=== PATIENT | male | born 1955 | race Caucasian/White ===

== ENCOUNTER 2018-07-25 02:03 | Observation (INO) ==
[2018-07-25] MEDS ORDERED: 0.9 % Sodium Chloride 1,000 ML IVC ONE (02:18)
[2018-07-25] MEDS ORDERED: *HR* Morphine 2 MG/ML SYRINGE IVP ONE (02:18)
[2018-07-25] MEDS ORDERED: Ondansetron 4 MG/2 ML VIAL IVP ONE ×2 (02:18→18:18)
--- NOTE | 2018-07-25 02:29 | Emergency Department Note ---
Disposition Clinical Impression: Nephrolithiasis Disposition: Admitted As Inpatient Condition: Good Referrals: Twan Dwyer DO [Primary Care Provider] - Forms: ED Satisfaction Letter, Work/School Release Time of Disposition: 04:05 Abdominal Pain HPI - General Chief Complaint: ED Abdominal Pain Stated Complaint: Kidney Stone/Left Flank Pain Time Seen by Provider: 07/25/18 02:16 Source: patient Mode of arrival: private vehicle Limitations: no limitations Nursing Notes Reviewed: Yes Vital Signs Reviewed: Yes - History of Present Illness HPI Narrative: 63-year-old male history of hypertension and kidney stones presents to the [facility] department with left flank pain. States for past 2 weeks he has had sharp pain that radiates from the left flank to the groin area. Approximately 6 days ago he was seen by his urologist Dr. Hay who prescribed Percocet and performed an x-ray that revealed a 5 mm kidney stone. He has had history kidney stones that requires lithotripsy every time. He is scheduled for lithotripsy in approximately 24 hours. He has been unable to control his pain at this time. Denies any nausea or vomiting. Last Percocet 6 PM approximately 8 hours prior to arrival. Denies any fever chills. He has noticed some hematuria. He has a history of colectomy. Pt Subjective Complaint: flank pain Pain Scale: 7 - Related Data Home Medications Medication Instructions Recorded Confirmed Amlodipine Besylate 10 mg PO HS 11/29/17 03/07/18 Citalopram Hydrobromide 10 mg PO DAILY 11/29/17 03/07/18 [Citalopram HBr] HYDROcodone/Acet 5/325 mg [[place] 1 tab PO Q6H PRN 11/29/17 03/07/18 5-325 mg] Metoprolol Succinate 100 mg PO DAILY 11/29/17 03/07/18 Omeprazole [PriLOSEC] 20 mg PO DAILY 11/29/17 03/07/18 Zolpidem [Ambien] 10 mg PO HS 11/29/17 03/07/18 hydrOXYzine HCl [Hydroxyzine HCl] 100 mg PO HS 11/29/17 03/07/18 Previous Rx's Medication Instructions Recorded OxyCODONE/APAP 5/325 [Percocet 2 each PO Q6H PRN 3 Days #10 tablet 11/29/17 5/325 MG] Allergies Allergy/AdvReac Type Severity Reaction Status Date / Time Iodinated Contrast- Oral and Allergy See Verified 07/25/18 02:07 IV Dye Comments [Iodinated Contrast Media - IV Dye] All systems ED: reviewed and negative except as stated. Review of Systems: As Per HPI Constitutional: Denies: fever, chills Cardiovascular: Denies: chest pain Respiratory: Denies: cough, dyspnea Gastrointestinal: Reports: abdominal pain. Denies: nausea, vomiting, diarrhea Genitourinary: Reports: hematuria. Denies: dysuria Musculoskeletal: Reports: back pain. Denies: neck pain Integumentary: Denies: rash Neurological: Denies: headache Abdominal Pain PMH - Past Medical History Medical history: Reports: cancer, GERD, hypertension, kidney stones Male Surgical History: Reports: orthopedic, other Psychiatric history: Reports: no psych history - Social History Smoking status: Never smoker Alcohol use: Reports: none, rarely Drug use: Reports: none Physical Exam - General Limitations: no limitations General appearance: alert, in distress (Appears uncomfortable, in pain) - Head Head exam: atraumatic, normocephalic, normal inspection - Eye Eye exam: Present: normal appearance, PERRL, EOMI - ENT ENT exam: normal exam, normal oropharynx, mucous membranes moist - Neck Neck exam: Present: normal inspection, full ROM, trachea midline - Chest Chest inspection: Present: normal inspection, symmetric chest wall rise - Respiratory Respiratory exam: Present: normal lung sounds bilaterally - Cardiovascular Cardiovascular exam: Present: regular rate, normal rhythm, normal heart sounds. Absent: systolic murmur, diastolic murmur - Abdominal Exam Abdominal exam: Present: soft, Non-Tender, normal bowel sounds. Absent: tenderness, distention, guarding, rebound, rigidity - Extremities Exam Extremities exam: Present: normal inspection, full ROM, normal capillary refill. Absent: tenderness, pedal edema - Back Exam Back exam: Present: normal inspection, full ROM, tenderness (Left flank). Absent: CVA tenderness (R), CVA tenderness (L) - Neurological Exam Neurological exam: Present: alert, oriented X3, normal gait - Psychiatric Psychiatric exam: Present: normal affect, normal mood - Skin Skin exam: Present: warm, dry, intact, normal color. Absent: rash, cyanosis, diaphoresis Course Course Narrative: Patient presents with known kidney stone on the left with significant pain uncontrolled at home. Denies any associated nausea vomiting. He is scheduled for outpatient lithotripsy and approximately 36 hours. Will evaluate for any renal insufficiency or infection. Patient is not diabetic. Also obtain a KUB to valuate further progression of the stone. IV fluids and pain medication. - Reevaluation(s) Reevaluation #1: Urinalysis appears contaminated with blood, WBC and leuk esterase. He has a known history of bladder cancer. Review of his prior urinalysis this appears consistent however urine culture without growth. Rest of his labs without any significant abnormality. It is noted that his serum creatinine 1.1 slightly above baseline. Patient reports minimal improvement with pain medication lastingly a few minutes and then returning. X-ray revealed up to 6 mm stone. Patient was given additional pain medication Dilaudid 1 mg. On reevaluation his pain is only improved from 8 to a 6. Due to the intractable pain patient may require admission. Will consult with urology. Time: 04:37 - Consultations Consultation #1: Spoke to urologist Dr. Hernandes who is on-call, will plan to see the patient in consultation and recommends admission to medicine. Time: 04:41 Consultation #2: Spoke with on-call hospitalist santi Mejia to admit for intractable pain secondary to nephrolithiasis. No further orders at this time Vital Signs Temperature 97.7 F 07/25/18 02:07 Pulse Rate 75 07/25/18 02:07 Respiratory Rate 17 07/25/18 02:07 Blood Pressure 173/107 07/25/18 02:07 O2 Sat by Pulse Oximetry 95 07/25/18 02:07 Temperature 97.7 F 07/25/18 02:07 Pulse Rate 78 07/25/18 03:53 Respiratory Rate 18 07/25/18 03:53 Blood Pressure 164/93 07/25/18 03:53 O2 Sat by Pulse Oximetry 96 07/25/18 03:53 Oxygen Delivery Oxygen Delivery Room Air Abdominal Pain - MDM Narrative Medical decision making narrative: Patient was discussed with my attending physician who agrees with ED management and final disposition. They independently evaluated the patient. Please refer to their attestation to this encounter for additional information. This note was generated by [employer] voice recognition software and as a result grammatical or spelling errors may occur using this program. - Medical Records Medical records reviewed: Yes I reviewed the patient's medical records. - Lab Data Lab results reviewed: Yes I reviewed the patient's lab results. Result diagrams: 07/25/18 02:18 07/25/18 02:18 Lab Results 07/25/18 07/25/18 07/25/18 Range/Units 02:18 02:18 02:28 WBC 9.1 (4.3-11.1) K/mcL RBC 5.10 (4.19-5.50) M/mcL Hgb 15.4 (12.9-16.9) g/dL Hct 44.4 (37.5-50.1) % MCV 87.1 (83.0-100.0) fL MCH 30.2 (28.0-33.3) pg MCHC 34.7 (31.6-35.5) g/dL RDW 13.1 (11.5-14.5) % Plt Count 226 (140-400) K/mcL MPV 9.9 (9.4-12.4) fL Immature Gran % 0.3 (0-4) % Seg Neutrophils % 57.7 % Lymphocytes % 28.2 % Monocytes % 10.0 % Eosinophils % 3.1 % Basophils % 0.7 % Neutrophils # 5.2 (1.6-8.9) K/mcL Lymphocytes # 2.6 (0.6-4.6) K/mcL Monocytes # 0.9 (0.0-1.3) K/mcL Eosinophils # 0.3 (0.0-0.6) K/mcL Basophils # 0.1 (0.0-0.2) K/mcL Sodium 140 (136-145) mEq/L Potassium 3.3 L (3.5-5.1) mEq/L Chloride 101 (98-107) mEq/L Carbon Dioxide 31 H (23-29) mEq/L BUN 21 (8-23) mg/dL Creatinine 1.18 (0.70-1.30) mg/dL Est GFR ( Amer) > 60 (> 60) Est GFR (Non-Af Amer) > 60 (> 60) BUN/Creatinine Ratio 18 (6-26) Glucose 103 (70-105) mg/dL Calculated Osmolality 293 (280-300) Calcium 9.8 (8.6-10.3) mg/dL Urine Color Yellow (Yellow) Urine Clarity Cloudy A (Clear) Urine pH 6.0 (5.0-8.0) pH Units Ur Specific [place] 1.027 H (1.010-1.025) Urine Protein 30 H (Neg-Trace) mg/dL Urine Glucose (UA) Normal (Normal) mg/dL Urine Ketones Negative (Negative) mg/dL Urine Blood Small H (Negative) Urine Nitrite Negative (Negative) Urine Bilirubin Negative (Negative) Urine Urobilinogen Normal (Normal) mg/dL Ur Leukocyte Esterase Moderate H (Negative) Urine Microscopic RBC 15-30 H (0-3) per hpf Urine Microscopic WBC TNTC H (0-3) per hpf Ur Squamous Epith Cells Moderate H (None-Few) per lpf Urine Bacteria Moderate H (None-Few) per hpf Hyaline Casts Few (None-Few) per lpf Ur Culture Indicated? YES A (NO) - Radiology Data Radiology results reviewed: Yes I reviewed the patient's radiology results. KUB X-Ray 07/25/18 02:18 IMPRESSION: See findings above. D/ / Luis Thao / Luis Thao Interpreting Provider: Luis Thao
[2018-07-25] MEDS ORDERED: Ketorolac 15 MG/ML VIAL IVP ONE (02:31)
[2018-07-25 02:36] LABS: Bilirubin,Urine Negative (Negative); Blood,Urine Small (Negative); Clarity,Urine Cloudy (Clear); Color,Urine Yellow (Yellow); Glucose,Urine (UA) Normal (Normal); Ketones,Urine Negative (Negative); Leukocyte Esterase,Urine Moderate (Negative); Nitrite,Urine Negative (Negative); Protein,Urine 30 mg/dL (Neg-Trace); Specific Gravity,Urine 1.027 (1.010-1.025); Urobilinogen,Urine Normal (Normal)
[2018-07-25 02:37] LABS: Bacteria,Urine Moderate per hpf (None-Few); Hyaline Casts,Urine Few per lpf (None-Few); RBC,Urine 15-30 per hpf (0-3); Squamous Epithelial Cell,Urine Moderate per lpf (None-Few); WBC,Urine TNTC per hpf (0-3)
[2018-07-25 03:21] LABS: Basophils # 0.1 K/mcL (0.0-0.2); Basophils % 0.7 %; Eosinophils # 0.3 K/mcL (0.0-0.6); Eosinophils % 3.1 %; Hematocrit 44.4 % (37.5-50.1); Hemoglobin 15.4 g/dL (12.9-16.9); Immature Granulocytes % 0.3 % (0-4); Lymphocytes # 2.6 K/mcL (0.6-4.6); Lymphocytes % 28.2 %; Mean Corpuscular HGB Conc 34.7 g/dL (31.6-35.5); Mean Corpuscular Hemoglobin 30.2 pg (28.0-33.3); Mean Corpuscular Volume 87.1 fL (83.0-100.0); Mean Platelet Volume 9.9 fL (9.4-12.4); Monocytes # 0.9 K/mcL (0.0-1.3); Neutrophils # 5.2 K/mcL (1.6-8.9); Platelet Count 226 K/mcL (140-400); Red Cell Distribution Width 13.1 % (11.5-14.5); Segmented Neutrophils % 57.7 %
[2018-07-25 03:42] LABS: BUN/Creatinine Ratio 18 (6-26); Blood Urea Nitrogen 21 mg/dL (8-23); Calcium 9.8 mg/dL (8.6-10.3); Carbon Dioxide 31 mEq/L (23-29); Chloride 101 mEq/L (98-107); Glucose 103 mg/dL (70-105); Osmolality,Calculated 293 (280-300); Potassium 3.3 mEq/L (3.5-5.1); Sodium 140 mEq/L (136-145); eGFR For Non-African Americans > 60 (> 60)
[2018-07-25] MEDS ORDERED: *HR* HYDROmorphone (PF) 1 MG/ML SYRINGE IVP ONE (04:03)
[2018-07-25] MEDS ORDERED: Potassium Chloride Elixir 20 MEQ/15 ML UDC PO ONE (05:01)
[2018-07-25] MEDS ORDERED: Naloxone 0.4 MG/ML INJ IVP PRN (05:03)
--- NOTE | 2018-07-25 05:23 | Emergency Department Note ---
Disposition Clinical Impression: Nephrolithiasis Disposition: Admitted As Inpatient Condition: Good General Adult HPI - General Chief complaint: ED Abdominal Pain Stated complaint: Kidney Stone/Left Flank Pain Time Seen by Provider: 07/25/18 02:16 Source: patient Mode of arrival: private vehicle Limitations: no limitations Nursing Notes Reviewed: Yes Vital Signs Reviewed: Yes - History of Present Illness Pain Scale: 7 - Related Data Home Medications Medication Instructions Recorded Confirmed Amlodipine Besylate 10 mg PO HS 11/29/17 03/07/18 Citalopram Hydrobromide 10 mg PO DAILY 11/29/17 03/07/18 [Citalopram HBr] HYDROcodone/Acet 5/325 mg [[place] 1 tab PO Q6H PRN 11/29/17 03/07/18 5-325 mg] Metoprolol Succinate 100 mg PO DAILY 11/29/17 03/07/18 Omeprazole [PriLOSEC] 20 mg PO DAILY 11/29/17 03/07/18 Zolpidem [Ambien] 10 mg PO HS 11/29/17 03/07/18 hydrOXYzine HCl [Hydroxyzine HCl] 100 mg PO HS 11/29/17 03/07/18 Previous Rx's Medication Instructions Recorded OxyCODONE/APAP 5/325 [Percocet 2 each PO Q6H PRN 3 Days #10 tablet 11/29/17 5/325 MG] Allergies Allergy/AdvReac Type Severity Reaction Status Date / Time Iodinated Contrast- Oral and Allergy See Verified 07/25/18 02:07 IV Dye Comments [Iodinated Contrast Media - IV Dye] Constitutional: Denies: fever, chills Cardiovascular: Denies: chest pain Respiratory: Denies: cough, dyspnea Gastrointestinal: Reports: abdominal pain. Denies: nausea, vomiting, diarrhea Genitourinary: Reports: hematuria. Denies: dysuria Musculoskeletal: Reports: back pain. Denies: neck pain Integumentary: Denies: rash Neurological: Denies: headache Past Medical History - Past Medical History Medical history: Reports: cancer, GERD, hypertension, kidney stones Surgical history: Reports: other Psychiatric history: Reports: no psych history - Social History Smoking Status: Never smoker Smokeless Tobacco Status: No Alcohol use: Reports: none, rarely Drug use: Reports: none Physical Exam - General Limitations: no limitations General appearance: alert, in distress (Appears uncomfortable, in pain) Course Vital Signs Temperature 97.7 F 07/25/18 02:07 Pulse Rate 75 07/25/18 02:07 Respiratory Rate 17 07/25/18 02:07 Blood Pressure 173/107 07/25/18 02:07 O2 Sat by Pulse Oximetry 95 07/25/18 02:07 Temperature 97.7 F 07/25/18 02:07 Pulse Rate 70 07/25/18 04:30 Respiratory Rate 18 07/25/18 04:30 Blood Pressure 163/100 07/25/18 04:30 O2 Sat by Pulse Oximetry 94 07/25/18 04:30 Oxygen Delivery Oxygen Delivery Room Air Medical Decision Making - Lab Data Result diagrams: 07/25/18 02:18 07/25/18 02:18 Lab Results 07/25/18 07/25/18 07/25/18 Range/Units 02:18 02:18 02:28 WBC 9.1 (4.3-11.1) K/mcL RBC 5.10 (4.19-5.50) M/mcL Hgb 15.4 (12.9-16.9) g/dL Hct 44.4 (37.5-50.1) % MCV 87.1 (83.0-100.0) fL MCH 30.2 (28.0-33.3) pg MCHC 34.7 (31.6-35.5) g/dL RDW 13.1 (11.5-14.5) % Plt Count 226 (140-400) K/mcL MPV 9.9 (9.4-12.4) fL Immature Gran % 0.3 (0-4) % Seg Neutrophils % 57.7 % Lymphocytes % 28.2 % Monocytes % 10.0 % Eosinophils % 3.1 % Basophils % 0.7 % Neutrophils # 5.2 (1.6-8.9) K/mcL Lymphocytes # 2.6 (0.6-4.6) K/mcL Monocytes # 0.9 (0.0-1.3) K/mcL Eosinophils # 0.3 (0.0-0.6) K/mcL Basophils # 0.1 (0.0-0.2) K/mcL Sodium 140 (136-145) mEq/L Potassium 3.3 L (3.5-5.1) mEq/L Chloride 101 (98-107) mEq/L Carbon Dioxide 31 H (23-29) mEq/L BUN 21 (8-23) mg/dL Creatinine 1.18 (0.70-1.30) mg/dL Est GFR ( Amer) > 60 (> 60) Est GFR (Non-Af Amer) > 60 (> 60) BUN/Creatinine Ratio 18 (6-26) Glucose 103 (70-105) mg/dL Calculated Osmolality 293 (280-300) Calcium 9.8 (8.6-10.3) mg/dL Urine Color Yellow (Yellow) Urine Clarity Cloudy A (Clear) Urine pH 6.0 (5.0-8.0) pH Units Ur Specific [place] 1.027 H (1.010-1.025) Urine Protein 30 H (Neg-Trace) mg/dL Urine Glucose (UA) Normal (Normal) mg/dL Urine Ketones Negative (Negative) mg/dL Urine Blood Small H (Negative) Urine Nitrite Negative (Negative) Urine Bilirubin Negative (Negative) Urine Urobilinogen Normal (Normal) mg/dL Ur Leukocyte Esterase Moderate H (Negative) Urine Microscopic RBC 15-30 H (0-3) per hpf Urine Microscopic WBC TNTC H (0-3) per hpf Ur Squamous Epith Cells Moderate H (None-Few) per lpf Urine Bacteria Moderate H (None-Few) per hpf Hyaline Casts Few (None-Few) per lpf Ur Culture Indicated? YES A (NO) Attestation Statement - Attestation Attestation: I, Rajinder Hollingsworth MD, personally evaluated this patient and discussed their management with the resident physician. I reviewed the resident's note and agree with the documented findings, medical decision making, and plan of care. 63-year-old male with a known kidney stone in the left ureter who is scheduled for lithotripsy on Wednesday presents to the emergency department complaining of increased pain for the past 2 days. He has Percocet at home but has been unable to manage the pain with Percocet. No fever. Some nausea from the pain but no vomiting. On examination patient is a well-developed well-nourished male in moderate discomfort. He is alert and oriented 3. There is no cyanosis or diaphoresis. Breath sounds are clear and equal bilaterally. Heart regular rate and rhythm. There is left CVA tenderness. Abdomen soft and nontender with normal bowel sounds. Labs reviewed. Patient medicated for pain but continues to have severe left flank pain uncontrolled with Dilaudid. The urologist avionics manager, Dr. Hernandes, was consulted and recommended admission for pain control. The hospitalist, Dr. Suero, was consulted and accepted admission of the patient.
--- NOTE | 2018-07-25 05:24 | Internal Med History&Physical ---
Date of Encounter: 07/25/18 Time of Encounter: 05:18 Internal Medicine - H&P: HPI Chief complaint: abdominal pain History of present illness: Cordell Cramer is a 63 year old man with a history of hypertension, high- grade bladder cancer status post transurethral resection of the tumor in November 2017 as well as recurrent kidney stones. He currently follows with urology as an outpatient for the latter. He says that about 2 weeks ago he developed sharp pain in his left flank radiating to his groin and 6 days ago he saw his urologist here at [place] prescribed narcotic analgesics and on x-ray saw a 5 mm kidney stone. He is scheduled for lithotripsy tomorrow as an outpatient however due to uncontrollable pain he came into the ER for evaluation. He has also noticed some hematuria of recent. Afebrile and without chills. No reports of nausea or vomiting. Another KUB was done to 9 showing a 6 mm focus of calcification and mid left ureter. Though hemodynamically stable in the ER he was in notable pain and was given ketorolac, morphine, hydromorphone and ondansetron. He is now admitted for further care. At this time he is in no acute distress. Past Med Surg Social Fam HX - Past Medical History Medical history: cancer, GERD, hypertension, kidney stones Psychiatric history: no psych history - Past Surgical History Surgical History: other Additional surgical history: TURP 2016. Colon Resection 2007. Right foot surgery 2008 - Social History Smoking Status: Never smoker Smokeless Tobacco Status: No Alcohol use: none, rarely Drug use: none - Family History Mother Living Status: Still Living Hx Family Cardiac Disorders: Yes (htn) Hx Family Respiratory Disorders: No Hx Family Cancer: No Hx Family GI Disorders: No Hx Family Endocrine Disorder: No Hx Family Neuromuscular Disorders: No Hx Family Neurologic Disorders: No Hx Family HEENT Disorders: No Hx Family Autoimmune Disorders: No Father Living Status: Hx Family Cardiac Disorders: Yes (htn, [place]) Hx Family Respiratory Disorders: No Hx Family Cancer: Yes Hx Family GI Disorders: Yes Hx Family Endocrine Disorder: No Hx Family Neuromuscular Disorders: No Hx Family Neurologic Disorders: No Hx Family HEENT Disorders: No Hx Family Autoimmune Disorders: No Internal Medicine - H&P: Meds Amlodipine Besylate 10 mg PO HS 11/29/17 [History] Citalopram Hydrobromide [Citalopram HBr] 10 mg PO DAILY 11/29/17 [History] HYDROcodone/Acet 5/325 mg [[place] 5-325 mg] 1 tab PO Q6H PRN 11/29/17 [History] Metoprolol Succinate 100 mg PO DAILY 11/29/17 [History] Omeprazole [PriLOSEC] 20 mg PO DAILY 11/29/17 [History] OxyCODONE/APAP 5/325 [Percocet 5/325 MG] 2 each PO Q6H PRN 3 Days #10 tablet 11/29/17 [Rx] Zolpidem [Ambien] 10 mg PO HS 11/29/17 [History] hydrOXYzine HCl [Hydroxyzine HCl] 100 mg PO HS 11/29/17 [History] Allergy/AdvReac Type Severity Reaction Status Date / Time Iodinated Contrast- Oral and Allergy See Verified 07/25/18 02:07 IV Dye Comments [Iodinated Contrast Media - IV Dye] All Systems PM: A 10-system review of systems was performed and is negative for pertinent findings except as documented above in the HPI. - Constitutional Vitals: Temp Pulse Resp BP Pulse Ox 97.7 F 70 18 163/100 94 07/25/18 02:07 07/25/18 04:30 07/25/18 04:30 07/25/18 04:30 07/25/18 04:30 Exam: Vitals: Reviewed General: Well-developed well-appearing male lying in bed in no acute distress. Skin: Warm and supple. HEENT: Moist mucous membranes. No conjunctivae pallor. Neck: No lymphadenopathy. No JVD. No carotid bruits. No palpable thyroid. Chest: Normal thoracic expansion. Normal breath sounds. Clear to auscultation. Heart: Normal S1 & S2; rhythmic. No rubs or murmurs. Abdomen: Non-distended, soft and mildly tender to palpation in the left flank. Extremities: No clubbing, cyanosis or edema. No calf tenderness. Normal distal pulses. Neurological: Awake, alert and oriented to person, place and time. No focal deficits. Psych: Affect appropriate. Internal Med - H&P Results - Labs CBC & Chem 7: 07/25/18 02:18 07/25/18 02:18 Labs: Short CBC 07/25/18 Range/Units 02:18 WBC 9.1 (4.3-11.1) K/mcL Hgb 15.4 (12.9-16.9) g/dL Hct 44.4 (37.5-50.1) % Plt Count 226 (140-400) K/mcL Neutrophils # 5.2 (1.6-8.9) K/mcL BMP 07/25/18 02:18 Sodium 140 Potassium 3.3 L Chloride 101 Carbon Dioxide 31 H BUN 21 Creatinine 1.18 Glucose 103 Calcium 9.8 Urine 07/25/18 Range/Units 02:28 Urine Color Yellow (Yellow) Urine Clarity Cloudy A (Clear) Urine pH 6.0 (5.0-8.0) pH Units Ur Specific [place] 1.027 H (1.010-1.025) Urine Protein 30 H (Neg-Trace) mg/dL Urine Glucose (UA) Normal (Normal) mg/dL - Impressions ITS Impressions KUB X-Ray 07/25/18 02:18 IMPRESSION: See findings above. D/ / Luis Thao / Luis Thao Interpreting Provider: Luis Thao - Assessment and Plan (1) Nephrolithiasis Current Visit: Yes Status: Acute Assessment and plan: Will keep NPO. Urology consult requested. IVF and analgesics as needed in the interim for the intractable pain. (2) Abnormal urinalysis Current Visit: Yes Status: Acute Assessment and plan: Seen to have a history of sterile pyuria. Although UA is abnormal, he has no clinical signs of infection/sepsis and is likely seondary to the ureteral inflammation combined and perhaps bladder abnormalities after tumor resection. No abx to be administered at this time but should receive perioperatively. (3) GERD (gastroesophageal reflux disease) Current Visit: Yes Status: Chronic Assessment and plan: PPI to be resumed once cleared for PO. Qualifiers: Esophagitis presence: without esophagitis Qualified Code(s): K21.9 - Gastro-esophageal reflux disease without esophagitis (4) Hypertension Current Visit: Yes Status: Chronic Assessment and plan: Uncontrolled at this time. Perhaps equally related to pain. Given current NPO status will administer 10mg of IV hydralazine. Qualifiers: Hypertension type: essential hypertension Qualified Code(s): I10 - Es sential (primary) hypertension (5) Multiple malignancies Current Visit: Yes Status: Resolved Assessment and plan: Has a history of colorectal Ca s/p partial colonic resection; melanoma s/p resec tion and bladder tumor s/p TURP with no evidence of ongoing disease. Follows with oncology. - Time Spent With Patient Total time spent is greater than 50% in coordination of care (as documented) at patient's floor/unit and/or counseling patient: Greater than 35 minutes
[2018-07-25 05:40] LABS: Prothrombin Time 11.8 Seconds (9.4-12.1)
[2018-07-25] MEDS: OXYCODONE Oral CONC 10 MG/0.5 ML ORAL.SYG SL PRN ×3 (05:40→17:53)
[2018-07-25 05:43] LABS: Activated Partial Thrombo Time 31.2 Seconds (26.0-36.0)
[2018-07-25] MEDS: Ringers Solution, Lactated 1,000 ML IVC SCH ×2 (05:51→14:00)
[2018-07-25] MEDS ORDERED: *HR* HYDROmorphone 2 MG/ML SYRINGE IVP PRN (05:52)
[2018-07-25] MEDS: Ketorolac 30 MG/ML VIAL IVP PRN ×2 (06:10→13:36)
[2018-07-25] MEDS: *HR* Heparin 5,000 UNIT/ML VIAL SQ SCH ×2 (06:11→17:17)
--- NOTE | 2018-07-25 07:45 | Internal Med Progress Note ---
<Jay Selby - Last Filed: 07/25/18 11:45> Hospitalist Progress Note - Encounter Date of Encounter: 07/25/18 Time of Encounter: 11:46 - Subjective Interval History: Patient continues to have abdominal pain. He is lying in bed and reports any movement makes his pain worse. He is nothing by mouth awaiting urology consu ltation and possible surgical intervention today. - Exam Vitals: Temp Pulse Resp BP Pulse Ox 97.9 F 66 17 155/91 93 07/25/18 05:52 07/25/18 05:52 07/25/18 05:52 07/25/18 05:52 07/25/18 05:52 Exam: General: pleasant, mild distress Cardiovascualr: Regular rate and rhythm with no murmur, absent gallops or rubs, absent pedal edema, radial pulses 2 out of 4 Lungs: Clear to auscultation bilaterally, not in respiratory distress Abdomen: Soft nontender, nondistended positive bowel sounds, absent hepatomegaly tender in the left flank Skin: warm and dry, absent rash, absent open wounds and nodules MSK: absent clubbing, cyanosis, joints without swelling Neuro: Cranial nerves II through XII intact, UE and LE sensation equal bilaterally, UE and LEstrength 5/5, alert oriented 3, Psych: good insight and judgment anxious - Assessment and Plan (1) Nephrolithiasis Current Visit: Yes Status: Acute Assessment and Plan: Patient has left flank pain. KUB shows 6 mm focus of calcification at the level of L3 in the mid left ureter. Awaiting urology recommendations Continue pain regimen Nothing by mouth (2) Abnormal urinalysis Current Visit: Yes Status: Acute Assessment and Plan: Urine culture incubating. patient denies dysuria. He reports normal urine production. No antibiotics recommended (3) Bladder cancer Current Visit: Yes Status: Acute Assessment and Plan: Patient has history of high-grade bladder cancer with trans-urethral resection of the tumor and November 2017 Follow-up with oncology and urology outpatient. (4) Hypertension Current Visit: Yes Status: Chronic Assessment and Plan: Patient is on metoprolol and amlodipine for hypertension. Currently holding by mouth medications for possible procedure today. Blood pressures 135/74 prn Lopressor (5) GERD (gastroesophageal reflux disease) Current Visit: Yes Status: Chronic Assessment and Plan: Protonix IV (6) Hypokalemia Current Visit: No Status: Resolved Assessment and Plan: Replacing Repeat BMP. - Time Spent with Patient Total time spent is greater than 50% in coordination of care (as documented) at patient's floor/unit and/or counseling patient: Internal Medicine: Result - Labs CBC & Chem 7: 07/25/18 02:18 07/25/18 02:18 Labs: Short CBC 07/25/18 Range/Units 02:18 WBC 9.1 (4.3-11.1) K/mcL Hgb 15.4 (12.9-16.9) g/dL Hct 44.4 (37.5-50.1) % Plt Count 226 (140-400) K/mcL Neutrophils # 5.2 (1.6-8.9) K/mcL BMP 07/25/18 02:18 Sodium 140 Potassium 3.3 L Chloride 101 Carbon Dioxide 31 H BUN 21 Creatinine 1.18 Glucose 103 Calcium 9.8 Urine 07/25/18 Range/Units 02:28 Urine Color Yellow (Yellow) Urine Clarity Cloudy A (Clear) Urine pH 6.0 (5.0-8.0) pH Units Ur Specific [place] 1.027 H (1.010-1.025) Urine Protein 30 H (Neg-Trace) mg/dL Urine Glucose (UA) Normal (Normal) mg/dL - ABG Interpretation ABG results: PT/INR, D-dimer PT 11.8 Seconds (9.4-12.1) 07/25/18 03:02 - Impressions Impressions KUB X-Ray 07/25/18 02:18 IMPRESSION: See findings above. D/ / Luis Thao / Luis Thao Interpreting Provider: Luis Thao Consult Discharge Plan - Plan Referrals: Twan Dwyer DO [Primary Care Provider] - <Tori Rose - Last Filed: 07/25/18 12:13> Hospitalist Progress Note - Encounter Date of Encounter: 07/25/18 - Exam Vitals: Temp Pulse Resp BP Pulse Ox 98.0 F 80 17 135/74 96 07/25/18 11:38 07/25/18 11:38 07/25/18 11:38 07/25/18 11:38 07/25/18 11:38 - Assessment and Plan (1) Hypertension Current Visit: Yes Status: Chronic (2) GERD (gastroesophageal reflux disease) Current Visit: Yes Status: Chronic (3) Nephrolithiasis Current Visit: Yes Status: Acute (4) Abnormal urinalysis Current Visit: Yes Status: Acute (5) Multiple malignancies Current Visit: Yes Status: Resolved - Time Spent with Patient Total time spent is greater than 50% in coordination of care (as documented) at patient's floor/unit and/or counseling patient: Internal Medicine: Result - Labs CBC & Chem 7: 07/25/18 02:18 07/25/18 02:18 Labs: Short CBC 07/25/18 Range/Units 02:18 WBC 9.1 (4.3-11.1) K/mcL Hgb 15.4 (12.9-16.9) g/dL Hct 44.4 (37.5-50.1) % Plt Count 226 (140-400) K/mcL Neutrophils # 5.2 (1.6-8.9) K/mcL BMP 07/25/18 02:18 Sodium 140 Potassium 3.3 L Chloride 101 Carbon Dioxide 31 H BUN 21 Creatinine 1.18 Glucose 103 Calcium 9.8 Urine 07/25/18 Range/Units 02:28 Urine Color Yellow (Yellow) Urine Clarity Cloudy A (Clear) Urine pH 6.0 (5.0-8.0) pH Units Ur Specific [place] 1.027 H (1.010-1.025) Urine Protein 30 H (Neg-Trace) mg/dL Urine Glucose (UA) Normal (Normal) mg/dL - ABG Interpretation ABG results: PT/INR, D-dimer PT 11.8 Seconds (9.4-12.1) 07/25/18 03:02 - Impressions Impressions KUB X-Ray 07/25/18 02:18 IMPRESSION: See findings above. D/ / Luis Thao / Luis Thao Interpreting Provider: Luis Thao - Attending Attestation I have seen and independently assessed this patient and I agree with plan as documented Plan Nephrolithiasis. Urology consult. IV fluids. NPO . Pain control <Jay Selby - Last Filed: 07/25/18 11:45> (3) Bladder cancer Qualifiers: Bladder location: unspecified site Qualified Code(s): C67.9 - Malignant neoplasm of bladder, unspecified (4) Hypertension Qualifiers: Hypertension type: essential hypertension Qualified Code(s): I10 - Essential (primary) hypertension (5) GERD (gastroesophageal reflux disease) Qualifiers: Esophagitis presence: without esophagitis Qualified Code(s): K21.9 - Gastro- esophageal reflux disease without esophagitis <Tori Rose - Last Filed: 07/25/18 12:13> (1) Hypertension Qualifiers: Hypertension type: essential hypertension Qualified Code(s): I10 - Essential (primary) hypertension (2) GERD (gastroesophageal reflux disease) Qualifiers: Esophagitis presence: without esophagitis Qualified Code(s): K21.9 - Gastro- esophageal reflux disease without esophagitis
[2018-07-25] MEDS ORDERED: *HR* Metoprolol 5 MG/5 ML VIAL IVP PRN (11:51)
--- NOTE | 2018-07-25 12:54 | Urology - Consult Note ---
Date of Encounter: 07/25/18 Time of Encounter: 12:52 - Assessment and Plan (1) Left ureteral calculus Current Visit: Yes Status: Acute Assessment and plan: KUB images reviewed and interpreted independently. Approximate 6 mm catheter was in the mid to upper left ureter. Discussed options for management with patient in detail. Plan: Add on to today's OR schedule for ureteroscopy holmium laser lithotripsy and stenting (2) Flank pain Current Visit: Yes Status: Acute Assessment and plan: Secondary to obstructing left ureteral calculus. Anticipate resolution post address of stone. Plan: Ureteroscopic laser lithotripsy and stenting of left ureteral calculus (3) Urinary tract infection Current Visit: No Status: Acute Assessment and plan: Suspicion for UTI. However, based upon review of urinalysis being without nitrites I do not believe the patient has an active UTI. Plan: Culture pending. Qualifiers: Urinary tract infection type: acute cystitis Hematuria presence: with hematuria Qualified Code(s): N30.01 - Acute cystitis with hematuria Urology CN:HPI Consult date: 07/25/18 Requesting physician: Moira Lopez History of present illness: Very pleasant 63-year-old gentleman with a long-standing history of nephrolithiasis. The patient is established with my partner Dr. Hay and has been seen and treated for stones in the past. The patient now had sudden onset of severe left-sided flank pain leading to emergency department visit last n ight. Imaging reveals a 6 mm left mid ureteral calculus. Patient reports no exacerbating or remitting factors. He is currently comfortable. Patient reports some nausea but has no vomiting. Denies fevers chills nausea vomiting. Pain is constant left flank without radiation. Past Med Surg Social Fam HX - Past Medical History Medical history: cancer, GERD, hypertension, kidney stones Psychiatric history: no psych history - Past Surgical History Surgical History: other Additional surgical history: TURP 2016. Colon Resection 2007. Right foot surgery 2009 - Social History Smoking Status: Never smoker Smokeless Tobacco Status: No Alcohol use: none, rarely Drug use: none - Family History Mother Living Status: Still Living Hx Family Cardiac Disorders: Yes (htn) Hx Family Respiratory Disorders: No Hx Family Cancer: No Hx Family GI Disorders: No Hx Family Endocrine Disorder: No Hx Family Neuromuscular Disorders: No Hx Family Neurologic Disorders: No Hx Family HEENT Disorders: No Hx Family Autoimmune Disorders: No Father Living Status: Hx Family Cardiac Disorders: Yes (htn, [place]) Hx Family Respiratory Disorders: No Hx Family Cancer: Yes Hx Family GI Disorders: Yes Hx Family Endocrine Disorder: No Hx Family Neuromuscular Disorders: No Hx Family Neurologic Disorders: No Hx Family HEENT Disorders: No Hx Family Autoimmune Disorders: No Medications and Allergies Amlodipine Besylate 10 mg PO HS 11/29/17 [History] Citalopram Hydrobromide [Citalopram HBr] 10 mg PO DAILY 11/29/17 [History] HYDROcodone/Acet 5/325 mg [[place] 5-325 mg] 1 tab PO Q6H PRN 11/29/17 [History] Metoprolol Succinate 100 mg PO DAILY 11/29/17 [History] Omeprazole [PriLOSEC] 20 mg PO DAILY 11/29/17 [History] OxyCODONE/APAP 5/325 [Percocet 5/325 MG] 2 each PO Q6H PRN 3 Days #10 tablet 11/29/17 [Rx] Zolpidem [Ambien] 10 mg PO HS 11/29/17 [History] hydrOXYzine HCl [Hydroxyzine HCl] 100 mg PO HS 11/29/17 [History] Allergy/AdvReac Type Severity Reaction Status Date / Time Iodinated Contrast- Oral and Allergy See Verified 07/25/18 02:07 IV Dye Comments [Iodinated Contrast Media - IV Dye] Review of Systems - Constitutional no chills, no fever(s) - EENT Nose, mouth and throat: no dizziness, no headache(s) - Cardiovascular no chest pain, no diaphoresis - Respiratory no cough - Gastrointestinal abdominal pain, no fecal incontinence - Genitourinary flank pain, no genital pain - Musculoskeletal back pain, no muscle weakness - Integumentary no lesions, no rash - Neurological no confusion, no sensory deficit - Psychiatric no anxiety, no confusion - Hematologic/Lymphatic no easy bleeding, no easy bruising - Allergic/Immunologic no throat swelling, no wheezing Exam Initial Vital Signs Temp Pulse Resp BP Pulse Ox 97.7 F 75 17 173/107 95 07/25/18 02:07 07/25/18 02:07 07/25/18 02:07 07/25/18 02:07 07/25/18 02:07 - General physical appearance Present: well developed, well nourished, moderate pain - Eyes Present: normal ocular movement - ENT Present: normal mucosa - Neck Present: trachea midline - Respiratory Present: normal respiratory effort - Rectum Rectum: Present: no bleeding - Integumentary Present: no rash, no growths, no abnormal pigmentation - Neurologic Present: normal coordination - Musculoskeletal Present: normal gait Urology Results - Labs 07/25/18 02:18 07/25/18 02:18 Abnormal lab results Potassium 3.3 mEq/L (3.5-5.1) L 07/25/18 02:18 Carbon Dioxide 31 mEq/L (23-29) H 07/25/18 02:18 Urine Clarity Cloudy (Clear) A 07/25/18 02:28 Ur Specific [place] 1.027 (1.010-1.025) H 07/25/18 02:28 Urine Protein 30 mg/dL (Neg-Trace) H 07/25/18 02:28 Urine Blood Small (Negative) H 07/25/18 02:28 Ur Leukocyte Esterase Moderate (Negative) H 07/25/18 02:28 Urine Microscopic RBC 15-30 per hpf (0-3) H 07/25/18 02:28 Urine Microscopic WBC TNTC per hpf (0-3) H 07/25/18 02:28 Ur Squamous Epith Cells Moderate per lpf (None-Few) H 07/25/18 02:28 Urine Bacteria Moderate per hpf (None-Few) H 07/25/18 02:28 Ur Culture Indicated? YES (NO) A 07/25/18 02:28 Diabetes panel 07/25/18 Range/Units 02:18 Sodium 140 (136-145) mEq/L Potassium 3.3 L (3.5-5.1) mEq/L Chloride 101 (98-107) mEq/L Carbon Dioxide 31 H (23-29) mEq/L BUN 21 (8-23) mg/dL Creatinine 1.18 (0.70-1.30) mg/dL Glucose 103 (70-105) mg/dL Calcium 9.8 (8.6-10.3) mg/dL Calcium panel 07/25/18 Range/Units 02:18 Calcium 9.8 (8.6-10.3) mg/dL Pituitary panel 07/25/18 Range/Units 02:18 Sodium 140 (136-145) mEq/L Potassium 3.3 L (3.5-5.1) mEq/L Chloride 101 (98-107) mEq/L Carbon Dioxide 31 H (23-29) mEq/L BUN 21 (8-23) mg/dL Creatinine 1.18 (0.70-1.30) mg/dL Glucose 103 (70-105) mg/dL Calcium 9.8 (8.6-10.3) mg/dL Adrenal panel 07/25/18 Range/Units 02:18 Sodium 140 (136-145) mEq/L Potassium 3.3 L (3.5-5.1) mEq/L Chloride 101 (98-107) mEq/L Carbon Dioxide 31 H (23-29) mEq/L BUN 21 (8-23) mg/dL Creatinine 1.18 (0.70-1.30) mg/dL Glucose 103 (70-105) mg/dL Calcium 9.8 (8.6-10.3) mg/dL All other labs normal. - Imaging Abdominal x-ray: image reviewed (Reviewed and interpreted independently) Consult Discharge Plan - Plan Referrals: Twan Dwyer DO [Primary Care Provider] -
[2018-07-25] MEDS ORDERED: Ondansetron ODT 4 MG TAB.RAPDIS SL PRN (13:43)
--- NOTE | 2018-07-25 16:09 | Anesthesia Evaluation PreOp ---
<Manny Bernardo - Last Filed: 07/25/18 16:06> Date of Encounter: 07/25/18 - Past History Planned Operation: LEFT USE Cardiac History: HTN REPAIR CAMERAMAN History: Other (ANXIETY, DEPRESSION) Other Medical History: GERD Anesthesia History: No Prior Anesthetic Complications, Past Anesthesia Alcohol Use: none, rarely Drug use: none Medications and Allergies Amlodipine Besylate 10 mg PO HS 11/29/17 [History] Citalopram Hydrobromide [Citalopram HBr] 10 mg PO DAILY 11/29/17 [History] HYDROcodone/Acet 5/325 mg [[place] 5-325 mg] 1 tab PO Q6H PRN 11/29/17 [History] Metoprolol Succinate 100 mg PO DAILY 11/29/17 [History] Omeprazole [PriLOSEC] 20 mg PO DAILY 11/29/17 [History] OxyCODONE/APAP 5/325 [Percocet 5/325 MG] 2 each PO Q6H PRN 3 Days #10 tablet 11/29/17 [Rx] Zolpidem [Ambien] 10 mg PO HS 11/29/17 [History] hydrOXYzine HCl [Hydroxyzine HCl] 100 mg PO HS 11/29/17 [History] Allergy/AdvReac Type Severity Reaction Status Date / Time Iodinated Contrast- Oral and Allergy See Verified 07/25/18 02:07 IV Dye Comments [Iodinated Contrast Media - IV Dye] - Meds/Allergy Pre-op Review Medications Reviewed: Yes Allergies Reviewed: Yes Beta Blockers on Current Med List: Yes Anesthesia Results - Labs 07/25/18 02:18 07/25/18 02:18 Anesthesia Exam Vital Signs/O2 Sat/Glucose, Most Recent Temp Pulse Resp BP Pulse Ox 97.9 F 93 18 164/89 91 07/25/18 15:55 07/25/18 15:55 07/25/18 15:55 07/25/18 15:55 07/25/18 15:55 Weight: 100 KG - BMI 31 NPO (# of Hours): 8 - Cardiac Rhythm: Regular - Pulmonary Breath Sounds: bilateral Clear Respiratory Effort: Symmetrical Anesthesia Assess/Plan ASA Score: 3 Anesthetic Plan: General Monitoring Plan: Standard Monitors Recovery Plan: PACU <Alina Baker - Last Filed: 07/25/18 18:14> Date of Encounter: 07/25/18 Time of Encounter: 18:14 - Past History Pulmonary History: Denies Any Significant HX REPAIR CAMERAMAN History: Other Anesthesia History: Past Anesthesia (TURBT, R renal stent, USE) - Meds/Allergy Pre-op Review If Beta Blockers taken, Date/Time (Last Dose taken): prn, none given recently Anesthesia Results - Labs 07/25/18 02:18 07/25/18 02:18 - Imaging EKG: report reviewed ( Interpretive Statements SINUS BRADYCARDIA POOR R WAVE PROGRESSION Electronically Signed On 11-11-2017 23:12:15 EDT by Harley Dong) Anesthesia Exam - HEENT Pupil (Motor): Pupils equal, EOMI Mallampati: II Teeth: Missing Oral Opening: Greater than 3 - REPAIR CAMERAMAN LOC: Oriented REPAIR CAMERAMAN Motor: Normal RUE, Normal LUE, Normal RLE, Normal LLE, Normal Face REPAIR CAMERAMAN Sensory: Normal: RUE, LUE, RLE, LLE, Face Anesthesia Assess/Plan ASA Score: 2 Level of consciousness: Cooperative
[2018-07-25] MEDS ORDERED: *HR* Meperidine 25 MG/ML SYRINGE IVP PRN (18:18)
[2018-07-25] MEDS ORDERED: *HR* OxyCODONE Immed Rel 5 MG TABLET PO PRN (18:18)
[2018-07-25] MEDS ORDERED: *HR* HYDROmorphone (PF) 1 MG/ML SYRINGE IVP PRN (18:18)
[2018-07-25] MEDS ORDERED: *HR* Promethazine 25 MG/ML VIAL IVP PRN (18:18)
[2018-07-25] MEDS ORDERED: Lidocaine -MPF 2% 2 ML VIAL ONE (18:26)
[2018-07-25] MEDS ORDERED: *HR* FentaNYL (PF) 100 MCG/2 ML VIAL ONE (18:26)
[2018-07-25] MEDS ORDERED: Dexamethasone 4 MG/ML VIAL ONE (18:26)
[2018-07-25] MEDS ORDERED: *HR* Midazolam HCl 2 MG/2 ML VIAL ONE (18:26)
[2018-07-25] MEDS ORDERED: *HR* Propofol 200 MG/20 ML VIAL IVP ONE (18:26)
[2018-07-25] MEDS ORDERED: Ringers Solution, Lactated 1,000 ML IVC SCH (18:30)
[2018-07-25] MEDS ORDERED: *HR* Succinylcholine 200 MG/10 ML VIAL IVP ONE (19:07)
--- NOTE | 2018-07-25 19:17 | Operative Note ---
Date of procedure: 07/25/18 Pre-op diagnosis: left ureteral stone Post-op diagnosis: same Procedure: Left ureteroscopic laser lithotripsy of stone, left ureteroscopic basket retrieval stone fragment, left 4.8 x 28 cm ureteral stent placement Anesthesia: GETA Surgeon: Vel Hay Was there an compliance assistant present: No Estimated blood loss (cc): 0 Specimen: left ureteral stone Condition: stable Disposition: PACU Procedure in Detail: Patient was prepped and draped in normal sterile fashion. Timeout procedure performed. I then inserted the semirigid ureteroscope and the patient's bladder. I was able to cannulate the left ureteral orifice and advance the scope up to the proximal ureter were encountered the 6 mm stone. I then using holmium laser to fragment the stone. All stone fragments were then removed and the patient's ureter. I then placed a sensor wire into the left kidney and placed a 4.8 x 28 cm stent with good curl seen in the left kidney and in the bladder. A string was left for easy removal in 2-3 days.
--- NOTE | 2018-07-25 19:45 | Anesthesia Evaluation Post Op ---
Date of Encounter: 07/25/18 Time of Encounter: 19:42 - Vital Signs Vital Signs: Vital Signs/O2 Sat, Most Current Temp Pulse Resp BP Pulse Ox 99.0 F 97 18 159/94 98 07/25/18 19:24 07/25/18 19:34 07/25/18 19:34 07/25/18 19:34 07/25/18 19:34 - Lungs Lungs: Clear Ascult./Percussion - Airway Airway: Non-obstructed - Cardiovascular Regular Rate - Mental Status Mental Status: Alert & Oriented, Answers Appropriately - Pain Pain Scale: 0 Pain Scale used: Numeric (1 - 10) - Nausea Vomiting Nausea Vomiting: Not Present - Hydration Hydration: Ice chips Notes: 07/25/18 19:43 Pt had a small amount brownish emesis at end of the case when LMA was removed, no evidence of aspiration at the time and the patient has remained hemodynamically stable in PACU with no drop in oxygen saturation - Discharge PostOp Status: Transfer Patient to floor
[2018-07-26 03:22] LABS: BUN/Creatinine Ratio 14 (6-26); Blood Urea Nitrogen 19 mg/dL (8-23); Calcium 9.2 mg/dL (8.6-10.3); Carbon Dioxide 27 mEq/L (23-29); Chloride 102 mEq/L (98-107); Glucose 180 mg/dL (70-105); Osmolality,Calculated 291 (280-300); Potassium 3.8 mEq/L (3.5-5.1); Sodium 137 mEq/L (136-145); eGFR For Non-African Americans 54 (> 60)
[2018-07-26] MEDS: *HR* Heparin 5,000 UNIT/ML VIAL SQ SCH (05:30)
[2018-07-26] MEDS ORDERED: Naloxone 0.4 MG/ML INJ IVP PRN (07:11)
[2018-07-26] MEDS ORDERED: OXYCODONE Oral CONC 10 MG/0.5 ML ORAL.SYG SL PRN (07:11)
[2018-07-26] MEDS ORDERED: Ondansetron ODT 4 MG TAB.RAPDIS SL PRN (07:11)
[2018-07-26] MEDS ORDERED: *HR* Metoprolol 5 MG/5 ML VIAL IVP PRN (07:11)
[2018-07-26] MEDS ORDERED: Ketorolac 30 MG/ML VIAL IVP PRN (07:11)
--- NOTE | 2018-07-26 07:34 | Urology Progress Note ---
Date of Encounter: 07/26/18 Time of Encounter: 07:33 - Assessment and Plan (1) Left ureteral calculus Current Visit: Yes Status: Acute Assessment and plan: Status post removal. Patient instructed to remove stent on . Patient has scheduled follow-up with my office in 3 weeks. Recommend 7 days of Cipro. Progress Note Narrative: Postoperative day 1 from stone extraction on left side. Patient was stent in place. Feeling much better. No fevers. Objective Initial Vital Signs Temp Pulse Resp BP Pulse Ox 97.7 F 75 17 173/107 95 07/25/18 02:07 07/25/18 02:07 07/25/18 02:07 07/25/18 02:07 07/25/18 02:07 - General physical appearance Present: well developed, well nourished - Abdomen Present: soft. Absent: tender - Labs 07/25/18 02:18 07/26/18 02:42 Diabetes panel 07/26/18 Range/Units 02:42 Sodium 137 (136-145) mEq/L Potassium 3.8 (3.5-5.1) mEq/L Chloride 102 (98-107) mEq/L Carbon Dioxide 27 (23-29) mEq/L BUN 19 (8-23) mg/dL Creatinine 1.34 H (0.70-1.30) mg/dL Glucose 180 H (70-105) mg/dL Calcium 9.2 (8.6-10.3) mg/dL Calcium panel 07/26/18 Range/Units 02:42 Calcium 9.2 (8.6-10.3) mg/dL Pituitary panel 07/26/18 Range/Units 02:42 Sodium 137 (136-145) mEq/L Potassium 3.8 (3.5-5.1) mEq/L Chloride 102 (98-107) mEq/L Carbon Dioxide 27 (23-29) mEq/L BUN 19 (8-23) mg/dL Creatinine 1.34 H (0.70-1.30) mg/dL Glucose 180 H (70-105) mg/dL Calcium 9.2 (8.6-10.3) mg/dL Adrenal panel 07/26/18 Range/Units 02:42 Sodium 137 (136-145) mEq/L Potassium 3.8 (3.5-5.1) mEq/L Chloride 102 (98-107) mEq/L Carbon Dioxide 27 (23-29) mEq/L BUN 19 (8-23) mg/dL Creatinine 1.34 H (0.70-1.30) mg/dL Glucose 180 H (70-105) mg/dL Calcium 9.2 (8.6-10.3) mg/dL Consult Discharge Plan - Plan Referrals: Twan Dwyer DO [Primary Care Provider] -
[2018-07-26 08:54] VITALS: BP 149/81
[2018-07-26] MEDS ORDERED: amLODIPine 5 MG TABLET PO SCH (09:00)
--- NOTE | 2018-07-26 09:35 | Discharge Summary ---
<Jay Selby - Last Filed: 07/26/18 15:17> - NOTES TO OUTPATIENT PROVIDER Notes to Outpatient Provider: Admitted for nephrolithiasis. Status post stent placement and patient will be on ciprofloxacin for 7 days and follow-up with urology Orders not resulted at time of discharge: Pending orders 07/25/18 02:28 Culture,Urine [RM] Stat 07/25/18 19:11 Surgical Pathology [PTH] Routine Date of Encounter: 07/26/18 Time of Encounter: 09:33 - Discharge Diagnosis (1) Nephrolithiasis Priority: Primary Status: Resolved (2) Abnormal urinalysis Priority: Secondary Status: Resolved (3) Bladder cancer Priority: Secondary Status: Chronic Qualifiers: Bladder location: unspecified site Qualified Code(s): C67.9 - Malignant neoplasm of bladder, unspecified (4) Hypertension Priority: Secondary Status: Chronic Qualifiers: Hypertension type: essential hypertension Qualified Code(s): I10 - Essential (primary) hypertension (5) GERD (gastroesophageal reflux disease) Priority: Secondary Status: Chronic Qualifiers: Esophagitis presence: without esophagitis Qualified Code(s): K21.9 - Gastro-esophageal reflux disease without esophagitis (6) Hypokalemia Priority: Secondary Status: Resolved Hospital course: Mr. Cramer is a 63 year old male presented with chief complaint abdominal pain. Patient has been following with urology for nephrolithiasis. He reports 2 weeks ago he developed sharp pain in the left flank and was found to have a 5 mm kidney stone on x-ray. He was scheduled for lithotripsy on 07/26/18 however his pain was unbearable and he presented to [facility]. Patient had left uteroscopic laser lithotripsy lithotripsy of stone, left uteroscopic basket retrieval stone fragment and left ureteral stent placement. Patient did not have any consultations from the procedure. Patient will be self removing the stent on and follow-up with urology in 3 weeks. He was discharged on ciprofloxacin for 7 days. Discharge discussed with: patient - Time Spent with Patient Total time spent providing and/or coordinating discharge services: - Discharge Medications Prescriptions: New Ciprofloxacin [Cipro] 500 mg PO BID #13 tablet Continue hydrOXYzine HCl [Hydroxyzine HCl] 100 mg PO HS Omeprazole [PriLOSEC] 20 mg PO DAILY Zolpidem [Ambien] 10 mg PO HS Metoprolol Succinate 100 mg PO DAILY Amlodipine Besylate 10 mg PO DAILY Citalopram Hydrobromide [Citalopram HBr] 40 mg PO DAILY Home Medications: Metoprolol Succinate 100 mg PO DAILY 11/29/17 [History] Omeprazole [PriLOSEC] 20 mg PO DAILY 11/29/17 [History] Zolpidem [Ambien] 10 mg PO HS 11/29/17 [History] hydrOXYzine HCl [Hydroxyzine HCl] 100 mg PO HS 11/29/17 [History] Amlodipine Besylate 10 mg PO DAILY 07/25/18 [History] Citalopram Hydrobromide [Citalopram HBr] 40 mg PO DAILY 07/25/18 [History] Ciprofloxacin [Cipro] 500 mg PO BID #13 tablet 07/26/18 [Rx] Allergies/Adverse Reactions: Allergy/AdvReac Type Severity Reaction Status Date / Time Iodinated Contrast- Oral and Allergy See Verified 07/25/18 20:54 IV Dye Comments [Iodinated Contrast Media - IV Dye] Date of admission: 07/25/18 05:01 Primary care physician: Twan Dwyer DO Consults: 07/25/18 04:40 Consult to Urology [CONS] Stat Consulting Provider: Urology Felicity Reason for Consult: nephrolithiasis Time Notified: 04:41 Call Completed: Yes Discharging clinician: Jay Selby Anticipated date of discharge: 07/26/18 - Constitutional Vitals: Temp Pulse Resp BP Pulse Ox 98.3 F 91 14 149/81 93 07/26/18 08:53 07/26/18 08:53 07/26/18 08:53 07/26/18 08:53 07/26/18 08:53 Exam: General: pleasant, mild distress Cardiovascualr: Regular rate and rhythm with no murmur, absent gallops or rubs, absent pedal edema, radial pulses 2 out of 4 Lungs: Clear to auscultation bilaterally, not in respiratory distress Abdomen: Soft nontender, nondistended positive bowel sounds, absent hepatomegaly Skin: warm and dry, absent rash, absent open wounds and nodules MSK: absent clubbing, cyanosis, joints without swelling Neuro: Cranial nerves II through XII intact, UE and LE sensation equal bilaterally, UE and LEstrength 5/5, alert oriented 3, Psych: good insight and judgment anxious - Patient Status Disposition: Home, Self-Care Condition: Good Functional capacity at discharge: independent ambulation Overall status at discharge: patient is progressing back to baseline - Discharge Instructions Instructions: Kidney Stones (DC) Follow Up With: Vel Hay MD [Partnered Physician] - 08/18/18 9:30 am (Please follow up as schedule....) Twan Dwyer DO [Primary Care Provider] - 07/29/18 1:00 pm (Please follow up as schedule...) - Diet and Activity Activity: increase activity as tolerated Diet: advance to your usual diet <Tori Rose - Last Filed: 07/26/18 17:34> Orders not resulted at time of discharge: Pending orders 07/25/18 02:28 Culture,Urine [RM] Stat 07/25/18 19:11 Surgical Pathology [PTH] Routine Date of Encounter: 07/26/18 - Discharge Diagnosis (1) Hypertension Status: Chronic Qualifiers: Hypertension type: essential hypertension Qualified Code(s): I10 - Essential (primary) hypertension (2) GERD (gastroesophageal reflux disease) Status: Chronic Qualifiers: Esophagitis presence: without esophagitis Qualified Code(s): K21.9 - Gastro-esophageal reflux disease without esophagitis (3) Nephrolithiasis Status: Resolved (4) Abnormal urinalysis Status: Resolved (5) Multiple malignancies Status: Resolved Hospital course: Mr. Cramer is a 63 year old male - Time Spent with Patient Total time spent providing and/or coordinating discharge services: Date of admission: 07/25/18 05:01 Primary care physician: Twan Dwyer DO Consults: 07/25/18 04:40 Consult to Urology [CONS] Stat Consulting Provider: Urology Felicity Reason for Consult: nephrolithiasis Time Notified: 04:41 Call Completed: Yes - Constitutional Vitals: Temp Pulse Resp BP Pulse Ox 98.3 F 91 14 149/81 93 07/26/18 08:53 07/26/18 08:53 07/26/18 08:53 07/26/18 08:53 07/26/18 08:53 - Attending Attestation I have seen and independently assessed this patient and I agree with plan as documented Exam Gen. NAD CVS. S1 S2 resp. CTAB Plan Nephrolithiasis. s/p laser lithotripsy. Tolerated procedure well with no acute complications. To complete 7 days of ciprofloxacin. Discharged in a stable condition
[2018-07-26] MEDS ORDERED: Acetaminophen 325 MG TABLET PO PRN (10:02)
[2018-07-26] MEDS ORDERED: *HR* Heparin 5,000 UNIT/ML VIAL SQ SCH (18:00)
[2018-07-31 09:24] LABS: Calculi Mass 17 mg
== END 2018-07-26 10:41 | disposition home or self-care (01) ==
LOC: EMEROOARM 02:03 → 2ANU 02:03
PROVIDERS: ADMIT Internal Medicine; ATTEND Internal Medicine